=== PATIENT | female | born 1990 | race Caucasian/White ===

== ENCOUNTER 2018-01-12 12:40 | Emergency (ER) | payer BC, OTHER ==
[2018-01-12] MEDS ORDERED: DEXAMETHASONE 10 MG/ML VIAL IVP ONE (15:25)
[2018-01-12] MEDS ORDERED: METOCLOPRAMIDE 10 MG/2 ML VIAL IVP ONE (15:25)
--- NOTE | 2018-01-12 15:30 | EDPHY ---
H & P Stated Complaint: gerard > 1 week/hx tension gerard's Time Seen by Provider: 01/12/18 15:12 HPI/ROS: CHIEF COMPLAINT: Persistent headache HISTORY OF PRESENT ILLNESS: 27-year-old female presents with a one-week history of persistent headache. Onset of typical tension-type headache 1 week ago. The pain started in her upper back and neck and then migrated to the back of her skull. The headache has been persistent despite ibuprofen, Naprosyn and Tylenol. She saw her PCP and was given Toradol IM with some relief. She was sent here for CT scan. h/o frequent tension GERARD's, similar in quality to this GERARD , but never lasting this long. Recent stressors at work. REVIEW OF SYSTEMS: complete 10 point ROS negative except at noted in the HPI - Personal History LMP (Females 10-55): Over 28 Days Ago Current Tetanus Diphtheria and Acellular Pertussis (TDAP): Yes - Medical/Surgical History Hx Asthma: No Hx Chronic Respiratory Disease: No Hx Diabetes: No Hx Cardiac Disease: No Hx Renal Disease: No Hx Cirrhosis: No Hx Alcoholism: No Hx HIV/AIDS: No Hx Splenectomy or Spleen Trauma: No Other PMH: gerard - Social History Smoking Status: Never smoked Alcohol Use: Occasionally Drug Use: None Additional Social History: - Physical Exam Exam: General Appearance: Alert, pleasant Eyes: Pupils equal and round, no conjunctival pallor or injection ENT, Mouth: Mucous membranes moist Neck: Normal inspection Respiratory: Lungs are clear to auscultation Cardiovascular: Regular rate and rhythm Gastrointestinal: Abdomen is soft and nontender Neurological: Alert, oriented x3, cranial nerves II through XII intact, motor 5 /5, sensory intact to light touch, normal gait Skin: Warm and dry, no rash Extremities: Nontender, no pedal edema Psychiatric: Mood and affect normal Constitutional: Initial Vital Signs Temperature (C) 36.8 C 01/12/18 12:55 Heart Rate 68 01/12/18 12:55 Respiratory Rate 18 01/12/18 12:55 Blood Pressure 102/65 01/12/18 12:55 O2 Sat (%) 98 01/12/18 12:55 O2 Delivery Mode Room Air Allergies/Adverse Reactions: latex sensitive Allergy (Uncoded 01/12/18 12:58) Home Medications: Medication Instructions Recorded CLONAZEPAM 01/12/18 Namenda 10 mg 01/12/18 Nuva Ring 01/12/18 Propranolol HCl 01/12/18 traZODone 01/12/18 Medical Decision Making - Diagnostics Imaging Results: Imaging Impressions Head CT 01/12/18 15:25 Impression: No evidence of acute intracranial pathology. Findings were communicated by telephone with Dr. NAY GOSS at 01/12/2018 16 :17 ED Course/Re-evaluation: This patient presents with gradual onset of head and neck pain. No relief with [id number] medications. Neurologic exam is normal. The clinical history does not suspect a serious etiology for the headache. Specifically, I do not suspect meningitis or subarachnoid hemorrhage. A CT scan of the brain ordered at her physician's request and is unremarkable. Decadron, Benadryl and Reglan IV given. The patient developed restless legs after IV Reglan. Ativan 0.5 mg IV and Benadryl 12.5 mg IV given. After this, she was no longer restless. Options discussed with the patient, including further medications or testing. She feels better and wishes to go home. She appears comfortable and neurologic exam remains normal. She will follow up with a neurologist as an outpatient. Differential Diagnosis: Headache including but not limited to subarachnoid hemorrhage, migraine headache , tension headache and infectious causes such as meningitis, pharyngitis and sinusitis. - Data Points Laboratory Results: Laboratory Results 01/12/18 15:32 01/12/18 15:32 01/12/18 01/12/18 01/12/18 15:32 15:32 15:32 WBC 6.07 10^3/uL 10^3/uL (3.80-9.50) RBC 4.33 10^6/uL 10^6/uL (4.18-5.33) Hgb 13.7 g/dL g/dL (12.6-16.3) Hct 39.8 % % (38.0-47.0) MCV 91.9 fL fL (81.5-99.8) MCH 31.6 pg pg (27.9-34.1) MCHC 34.4 g/dL g/dL (32.4-36.7) RDW 12.8 % % (11.5-15.2) Plt Count 278 10^3/uL 10^3/uL (150-400) MPV 8.9 fL fL (8.7-11.7) Neut % (Auto) 55.5 % % (39.3-74.2) Lymph % (Auto) 33.3 % % (15.0-45.0) [place] % (Auto) 8.2 % % (4.5-13.0) Eos % (Auto) 2.3 % % (0.6-7.6) Baso % (Auto) 0.5 % % (0.3-1.7) Nucleat RBC Rel Count 0.0 % % (0.0-0.2) Absolute Neuts (auto) 3.37 10^3/uL 10^3/uL (1.70-6.50) Absolute Lymphs (auto) 2.02 10^3/uL 10^3/uL (1.00-3.00) Absolute Monos (auto) 0.50 10^3/uL 10^3/uL (0.30-0.80) Absolute Eos (auto) 0.14 10^3/uL 10^3/uL (0.03-0.40) Absolute Basos (auto) 0.03 10^3/uL 10^3/uL (0.02-0.10) Absolute Nucleated RBC 0.00 10^3/uL 10^3/uL (0-0.01) Immature Gran % 0.2 % % (0.0-1.1) Immature Gran # 0.01 10^3/uL 10^3/uL (0.00-0.10) Sodium 138 mEq/L mEq/L (135-145) Potassium 4.0 mEq/L mEq/L (3.3-5.0) Chloride 104 mEq/L mEq/L (97-110) Carbon Dioxide 17 mEq/l L mEq/l (22-31) Anion Gap 17 mEq/L H mEq/L (8-16) BUN 13 mg/dL mg/dL (7-23) Creatinine 0.6 mg/dL mg/dL (0.6-1.0) Estimated GFR > 60 Glucose 66 mg/dL L mg/dL (70-100) Calcium 9.4 mg/dL mg/dL (8.5-10.4) Beta HCG, Qual NEGATIVE Medications Given: Discontinued Medications Dexamethasone (Decadron Injection) 10 mg IVP EDNOW ONE Stop: 01/12/18 15:26 Last Admin: 01/12/18 15:34 Dose: 10 mg Diphenhydramine HCl (Benadryl Injection) 25 mg IVP EDNOW ONE Stop: 01/12/18 15:26 Last Admin: 01/12/18 15:35 Dose: 25 mg Diphenhydramine HCl (Benadryl Injection) 12.5 mg IVP EDNOW ONE Stop: 01/12/18 16:20 Last Admin: 01/12/18 16:20 Dose: 12.5 mg Ketorolac Tromethamine (Toradol) 30 mg IVP EDNOW ONE Stop: 01/12/18 17:25 Last Admin: 01/12/18 17:56 Dose: Not Given Lorazepam (Ativan Injection) 0.5 mg IVP EDNOW ONE Stop: 01/12/18 15:50 Last Admin: 01/12/18 15:51 Dose: 0.5 mg Metoclopramide HCl (Reglan Injection) 10 mg IVP EDNOW ONE Stop: 01/12/18 15:26 Last Admin: 01/12/18 15:34 Dose: 10 mg Departure - Departure Disposition: Home, Routine, Self-Care Clinical Impression: Headache Qualifiers: Headache type: tension-type Headache chronicity pattern: acute headache Intractability: intractable Qualified Code(s): G44.201 - Tension-type headache, unspecified, intractable Condition: Good Instructions: Tension Headache (ED) Referrals: Omar Elizabeth DO [Medical Doctor] - As per Instructions (Call to make an appointment.)
[2018-01-12 15:44] LABS: PLATELET COUNT 278 10^3/uL (150-400)
[2018-01-12] MEDS ORDERED: LORazepam 2 MG/ML INJ ONE (15:48)
[2018-01-12] MEDS ORDERED: LORazepam 2 MG/ML INJ IVP ONE (15:49)
[2018-01-12] MEDS ORDERED: KETOROLAC 15 MG/1 ML SDV IVP ONE (17:24)
[2018-01-12 18:25] VITALS: BP 106/61
== END 2018-01-12 18:36 | disposition home or self-care (01) ==
DX: G44.201 Tension-type headache, unspecified, intractable (principal); Z91.040 Latex allergy status
CPT/HCPCS: 96374; J1100; J1200; J1885; J2060; J2765

== ENCOUNTER → 2019-01-17 | Outpatient (CLI) | payer OTHER | LOC: BMCIMAGING 15:59 ==